=== PATIENT | female | born 1985 | race Caucasian/White ===

== ENCOUNTER → 2023-03-06 | Outpatient (CLI) | payer BC | END | disposition home or self-care (01) | LOC: RAD 11:43 | PROVIDERS: ATTEND Nurse Practitioner Family | DX: S89.91XA Unspecified injury of right lower leg, initial encounter (principal); X58.XXXA Exposure to other specified factors, initial encounter; Y93.89 Activity, other specified; Y92.89 Other specified places as the place of occurrence of the external cause; Y99.8 Other external cause status ==